=== PATIENT | female | born 1980 | race Caucasian/White ===

== ENCOUNTER 2018-03-19 17:44 | Inpatient (IN) | payer MEDICAID ==
[~2018-03-19] VITALS: Ht 160 cm; Wt 100.0 kg
[2018-03-19] MEDS ORDERED: LACTATED RINGER'S 1000 ML INJ 1,000 ML IV PRN (18:20)
--- NOTE | 2018-03-19 18:20 | HHI.HP ---
HPI Chief Complaint Water broke 4 PM Date Seen: March 19, 2018 Time Seen: 18:16 Travel History International Travel<30 Days: No Contact w/Intl Traveler<30Days: No Known Affected Area: No History of Present Illness HPI Patient is 37-year-old white female at [address] Werner for care and presents with spontaneous rupture membranes at term her amnisure is positive, lot rate tracing is reactive she is having occasional contraction Weeks Gestation: 38 Para: 0 : 1 History Social History Alcohol Use: No Tobacco Use: No Substance Abuse: No Allergies-Medications (Allergen,Severity, Reaction): Coded Allergies: No Known Drug Allergies (Verified Allergy, Unknown, 09/09/17) Home Meds No Active Prescriptions or Reported Meds Review of Systems General / Constitutional: No: Fever, Weight Gain, Chills, Other Eyes: No: Diploplia, Blurred Vision, Visual changes, Pain, Photophobia HENT: No: Headaches, Vertigo, Lightheadedness Cardiovascular: No: Irregular Rhythm, Chest Pain or Discomfort, Palpitations, Tachycardia, Syncope, Varicosities, Edema, Cyanosis Respiratory: No: Cough, Short of Breath, Other Gastrointestinal: No: Nausea, Vomiting, Diarrhea Genitourinary: No: Decreased Urinary Output, Oliguria Musculoskeletal: No: Limited ROM, Weakness, Cramping, Edema, Pain Skin: No Rash, No Itching, No Dryness, No Lumps, No Change in Pigmentation, No Change in Nails, No Alopecia, No Lesions Neurologic: No: Weakness, Dizziness, Syncope, Focal Abnormalities, Coordination Problem, Headache, Slurred Speech, Seizures Psychiatric: No: Depression, Suicidal Ideations, Homicidal Ideation Endocrine: No: Heat Intolerance, Cold Intolerance, Polydipsia, Polyuria, Other Physical Exam Narrative GENERAL: Well-nourished, well-developed patient. SKIN: Warm and dry. HEAD: Normocephalic and atraumatic. EYES: No scleral icterus. No injection or drainage. ENT: No nasal drainage noted. Mucous membranes pink. Airway patent. NECK: Supple, trachea midline. No JVD. CARDIOVASCULAR: Regular rate and rhythm without murmurs, gallops, or rubs. RESPIRATORY: Breath sounds equal bilaterally. No accessory muscle use. BREASTS: Bilateral exam showed no masses , no retractions, no nipple discharge. ABDOMEN/GI: Abdomen soft, non-tender, bowel sounds present, no rebound, no guarding Gravid to [-38] weeks size Fundal Height: [38-] GENITOURINARY: External Genitalia: intact and normal in appearance BUS glands: [-] Cervix: [post-] Dilatation: [2-] Effacement: [70-] Station: [-2] Presentation: [vtx-] Membranes: ruptured] Uterine Contractions: [-irreg] FHT's: Category: [1-] Baseline: [133-] Reactive: [-R] Variability: [mod-] Decels: [-0] EXTREMITIES: No cyanosis or edema. BACK: Nontender without obvious deformity. No CVA tenderness. NEUROLOGICAL: Awake and alert. Motor and sensory grossly within normal limits. Five out of 5 muscle strength in all muscle groups. Normal speech. Caprini VTE Risk Assessment Caprini VTE Risk Assessment: No/Low Risk (score <= 1) Caprini Risk Assessment Model Point Value = 1 Point Value = 2 Point Value = 3 Point Value = 5 Age 41-60 Minor surgery BMI > 25 kg/m2 Swollen legs Varicose veins or History of unexplained or recurrent spontaneous Oral contraceptives or hormone replacement Sepsis (< 1 month) Serious lung disease, including pneumonia (< 1 month) Abnormal pulmonary function Acute myocardial infarction Congestive heart failure (< 1 month) History of inflammatory bowel disease Medical patient at bed rest Age 61-74 Arthroscopic surgery Major open surgery (> 45 min) Laparoscopic surgery (> 45 min) Malignancy Confined to bed (> 72 hours) Immobilizing plaster cast Central venous access Age >= 75 History of VTE Family history of VTE Factor V Leiden Prothrombin [id number] Lupus anticoagulant Anticardiolipin antibodies Elevated serum homocysteine Heparin-induced thrombocytopenia Other congenital or acquired thrombophilia Stroke (< 1 month) Elective arthroplasty Hip, pelvis, or leg fracture Acute spinal cord injury (< 1 month) Prophylaxis Regimen Total Risk Factor Score Risk Level Prophylaxis Regimen 0-1 Low Early ambulation 2 Moderate Order ONE of the following: *Sequential Compression Device (SCD) *Heparin 5000 units SQ BID 3-4 Higher Order ONE of the following medications: *Heparin 5000 units SQ TID *Enoxaparin/Lovenox 40 mg SQ daily (WT < 150 kg, CrCl > 30 mL/min) *Enoxaparin/Lovenox 30 mg SQ daily (WT < 150 kg, CrCl > 10-29 mL/min) *Enoxaparin/Lovenox 30 mg SQ BID (WT < 150 kg, CrCl > 30 mL/min) AND/OR *Sequential Compression Device (SCD) 5 or more Highest Order ONE of the following medications: *Heparin 5000 units SQ TID (Preferred with Epidurals) *Enoxaparin/Lovenox 40 mg SQ daily (WT < 150 kg, CrCl > 30 mL/min) *Enoxaparin/Lovenox 30 mg SQ daily (WT < 150 kg, CrCl > 10-29 mL/min) *Enoxaparin/Lovenox 30 mg SQ BID (WT < 150 kg, CrCl > 30 mL/min) AND *Sequential Compression Device (SCD) Data Data Group B Strep: Positive Assessment/Plan Assessment and Plan [id number] at 38 weeks with spontaneous rupture membranes and not in active labor yet, is GBS positive will begin penicillin, discuss case with Dr. Werner Plan-admit to labor and delivery, augment managed labor appropriately, IV antibiotics for GBS status, anticipate vaginal delivery Anegl Dorsey II, MD March 19, 2018 18:20
[2018-03-19] MEDS ORDERED: LIDOCAINE HCL 1% 50 ML VIAL I-DERMAL PRN (18:30)
[2018-03-19] MEDS ORDERED: OXYTOCIN 30 UNITS-500ML PREMIX 500 ML IV ONE (18:30)
[2018-03-19] MEDS ORDERED: CITRIC ACID-SODIUM CITRATE LIQ 30 ML UDC PO SCH (18:30)
[2018-03-19] MEDS ORDERED: MINERAL OIL 10 ML VIAL TOPICAL PRN (18:30)
[2018-03-19] MEDS ORDERED: LIDOCAINE HCL 1% 50 ML VIAL INFIL PRN (18:30)
[2018-03-19] MEDS ORDERED: SODIUM CHLORID 0.9% 500 ML INJ 500 ML IV PRN (18:30)
[2018-03-19] MEDS ORDERED: PENICILLIN G POTASSIUM INJ 5,000,000 UNITS in SODIUM CHLORIDE 0.9% INJ 100 ML IV ONE (18:30)
[2018-03-19] MEDS ORDERED: SODIUM CHLOR 0.9% 1000 ML INJ 1,000 ML IV PRN (18:40)
[2018-03-19] MEDS ORDERED: LACTCAP8 PO (18:43)
[2018-03-19] MEDS ORDERED: PREN29TA PO (18:43)
[2018-03-19] MEDS ORDERED: OXYTOCIN 30 UNITS-500ML PREMIX 500 ML IV PRN (19:00)
[2018-03-19] MEDS: LACTATED RINGER'S 1000 ML INJ 1,000 ML IV SCH (19:57)
[2018-03-19 20:04] LABS: AUTOMATED NEUTROPHIL # 10.6 TH/MM3 (1.8-7.7); BASOPHIL % 0.3 % (0.0-2.0); EOSINOPHIL # 0.1 TH/MM3 (0-0.4); EOSINOPHIL % 0.6 % (0.0-4.0); HEMOGLOBIN 12.5 GM/DL (11.6-15.3); LYMPH % 25.2 % (9.0-44.0); LYMPHOCYTE # 3.8 TH/MM3 (1.0-4.8); MEAN CELL VOLUME 87.8 FL (80.0-100.0); MEAN PLATELET VOLUME 7.9 FL (7.0-11.0); MONO % 4.4 % (0.0-8.0); MONOCYTE # 0.7 TH/MM3 (0-0.9); NEUT % 69.5 % (16.0-70.0); PLATELET COUNT 340 TH/MM3 (150-450); RED BLOOD COUNT 4.33 MIL/MM3 (4.00-5.30); RED CELL DISTRIBUTION WIDTH 14.2 % (11.6-17.2); WHITE BLOOD COUNT 15.2 TH/MM3 (4.0-11.0)
[2018-03-19 20:07] LABS: BACTERIA, URINE RARE /hpf; BILIRUBIN, URINE NEG (NEG); BLOOD, URINE NEG (NEG); GLUCOSE,URINE NEG (NEG); KETONE, URINE 10 mg/dL (NEG); MUCUS URINE FEW /lpf (OCC); NITRITE,URINE NEG (NEG); PH, URINE 5.5 (5.0-8.5); SQUAMOUS EPITHELIAL CELL URINE 10 /hpf (0-5); URINE COLOR LIGHT-YELLOW (YELLW/STRAW); URINE LEUKOCYTE ESTERASE MOD (NEG)
--- NOTE | 2018-03-19 21:23 | PD.LABORPN ---
Subjective Subjective doing well no significant pain Objective Objective Pelvic Exam: Cervix: [-] Dilatation: 3 Effacement: 90 Station: [-] Presentation: vtx Membranes SROM Uterine Contractions: Q2 FHT's: Category: 1 Baseline: [-] Reactive: [-] Variability: [-] Decels: [-] Weeks Gestation: 38 Gest Age Assessed Date: March 19, 2018 Gest Age Assessed Time: 21:20 Active labor start date: March 19, 2018 Active labor start time: 16:00 Medical induction of labor?: No Artificial rupture of membrane: No Assessment/Plan Problem List: (1) AMA (advanced maternal age) multigravida 35+ ICD Codes: O09.529 - Supervision of elderly multigravida, unspecified trimester (2) 38 weeks gestation of ICD Codes: Z3A.38 - 38 weeks gestation of Cali Whitehead MD March 19, 2018 21:23
[2018-03-19] MEDS: PENICILLIN G POTASSIUM INJ 2,500,000 UNITS in SODIUM CHLORIDE 0.9% INJ 100 ML IV SCH (22:30)
[2018-03-19] MEDS ORDERED: fentaNYL 2MCG-BUPIV 0.125% INJ 150 ML EPIDURAL ONE (23:46)
[2018-03-20] MEDS ORDERED: LIDOCAINE 1.5%/EPINEPHrine 1:200,000 PF 5 ML AMP ONE (00:06)
[2018-03-20] MEDS ORDERED: DO NOT ADMINISTER ANTICOAGULANTS PRN (00:10)
[2018-03-20] MEDS ORDERED: NO SYSTEM NARCOTICS PRN (00:10)
[2018-03-20] MEDS ORDERED: fentaNYL 2MCG-BUPIV 0.125% 100 ML EPIDURAL PRN (00:10)
[2018-03-20] MEDS ORDERED: ePHEDrine/NS 25 MG/5 ML SYRINGE ONE (00:32)
[2018-03-20] MEDS ORDERED: ePHEDrine/NS 25 MG/5 ML SYRINGE IV PUSH PRN (00:45)
[2018-03-20] MEDS: LACTATED RINGER'S 1000 ML INJ 1,000 ML IV SCH (01:08)
[2018-03-20] MEDS: PENICILLIN G POTASSIUM INJ 2,500,000 UNITS in SODIUM CHLORIDE 0.9% INJ 100 ML IV SCH ×2 (02:30→09:09)
[2018-03-20] MEDS ORDERED: ONDANSETRON ODT 4 MG TAB SL PRN (05:00)
--- NOTE | 2018-03-20 08:00 | PD.LABORPN ---
Subjective Subjective doing well, comfortable with epidural and IUPC in place and pitocin at 20 mu/min Objective Objective Pelvic Exam: Cervix: [-] Dilatation:9 Effacement: 100 Station: -1 Presentation: vtx Membranes: Srom 4 pm Uterine Contractions: 2-3 FHT's: Category: 1 Baseline: [-] Reactive: [-] Variability: [-] Decels: [-] Weeks Gestation: 38 Gest Age Assessed Date: March 19, 2018 Gest Age Assessed Time: 21:20 Active labor start date: March 19, 2018 Active labor start time: 16:00 Medical induction of labor?: No Artificial rupture of membrane: No Assessment/Plan Problem List: (1) AMA (advanced maternal age) multigravida 35+ ICD Codes: O09.529 - Supervision of elderly multigravida, unspecified trimester (2) 38 weeks gestation of ICD Codes: Z3A.38 - 38 weeks gestation of Assessment and Plan continue to change position and monitor Cali Whitehead MD March 20, 2018 08:00
[2018-03-20] MEDS ORDERED: fentaNYL 2MCG-BUPIV 0.125% INJ 150 ML EPIDURAL ONE (09:03)
[2018-03-20] MEDS ORDERED: LIDOCAINE HCL 1% PF 30 ML VIAL ONE (11:50)
--- NOTE | 2018-03-20 12:12 | PD.OB.DELI ---
Weeks gestation: 38 Gest age assessed date: March 19, 2018 Gest age assessed time: 21:20 Active labor start date: March 19, 2018 Active labor start time: 16:00 Medical induction of labor?: No Artificial rupture of membrane: No Anesthesia: Epidural Episiotomy: None Vaginal Delivery: Normal Presentation: Occiput anterior Nuchal Cord: None Delayed cord clamping (45 sec): Yes : Female Delivery date: March 20, 2018 Delivery time: 11:53 One Minute : 9 Five Minute : 9 Placenta: Spontaneous delivery, Intact, 3 vessel cord Laceration: Vaginal laceration, 1 deg Repair: Chromic interrupted Cali Whitehead MD March 20, 2018 12:12
[2018-03-20] MEDS ORDERED: ACETAMINOPHEN 325 MG TAB PO PRN (12:15)
[2018-03-20] MEDS ORDERED: ONDANSETRON ODT 4 MG TAB PO PRN (12:15)
[2018-03-20] MEDS ORDERED: SODIUM CHLORIDE 0.9% FLUSH 10 ML FLUSH IV FLUSH PRN (12:15)
[2018-03-20] MEDS ORDERED: ZOLPIDEM TARTRATE 5 MG TAB PO PRN (12:15)
[2018-03-20] MEDS ORDERED: BENZOCAINE 20% TOPICAL SPRAY 60 ML CAN TOPICAL PRN (12:15)
[2018-03-20] MEDS ORDERED: WITCH HAZEL 50%/GLYCERIN 12.5% 40 PAD JAR TOPICAL PRN (12:15)
[2018-03-20] MEDS ORDERED: ALUMINUM/MAGNESIUM/SIMETH 30 ML CUP PO PRN (12:15)
[2018-03-20] MEDS ORDERED: OXYTOCIN 30 UNITS-500ML PREMIX 500 ML IV SCH (12:15)
[2018-03-20] MEDS ORDERED: DIPHTH/TETANUS/ACEL PERTUSSIS (BOOSTER) 0.5 ML VIAL/PFS IM ONE (16:00)
[2018-03-20] MEDS ORDERED: MEASLES, MUMPS, RUBELLA VACCINE 0.5 ML VIAL SQ ONE (16:00)
[2018-03-20 20:32] VITALS: BP 133/72; PULSE 101; RESP 18; TEMP 97.6
[2018-03-21] MEDS: DOCUSATE SODIUM 50 MG/SENNA 8.6 MG TAB PO PRN ×2 (02:07→14:58)
[2018-03-21] MEDS: IBUPROFEN 800 MG TAB PO PRN ×2 (02:07→14:59)
--- NOTE | 2018-03-21 07:22 | HHI.OB ---
Subjective Post Day: 1 Remarks doing well GBS positive pt aware of 48 hr stay Objective Vitals/I&O Vital Signs Date Time Temp Pulse Resp B/P (MAP) Pulse Ox O2 Delivery O2 Flow Rate FiO2 03/20/18 20:32 97.6 101 18 133/72 (92) Objective Remarks GENERAL: Well-nourished, well-developed patient. ABDOMEN/GI: Abdomen soft, non-tender. Fundus: Firm, non-tender at umbilicus. GENITOURINARY: Light to moderate bleeding. EXTREMITIES: No cyanosis or edema, non-tender, without signs of DVT. Medications and IVs Current Medications Medications (Trade) Dose Ordered Sig/Erica Route Start Time Stop Time Status Last Admin (NS Flush) 2 ml BID IV FLUSH 03/20/18 21:00 (NS Flush) 2 ml UNSCH PRN IV FLUSH 03/20/18 12:15 (Tylenol) 650 mg Q4H PRN PO 03/20/18 12:15 (Motrin) 800 mg Q8H PRN PO 03/20/18 12:15 03/21/18 02:07 (Americaine 20% Top Spr) 1 spray Q4H PRN TOPICAL 03/20/18 12:15 (Tucks Pads) 1 applic QID PRN TOPICAL 03/20/18 12:15 (Mery-Colace) 2 tab Q12H PRN PO 03/20/18 12:15 03/21/18 02:07 (Ambien) 5 mg HS PRN PO 03/20/18 12:15 (Mag-Al Plus Susp Liq) 15 ml Q8H PRN PO 03/20/18 12:15 (Zofran Odt) 4 mg Q6H PRN PO 03/20/18 12:15 Assessment/Plan Problem List: (1) AMA (advanced maternal age) multigravida 35+ ICD Codes: O09.529 - Supervision of elderly multigravida, unspecified trimester (2) 38 weeks gestation of ICD Codes: Z3A.38 - 38 weeks gestation of Assessment and Plan on 03/20 Cali Whitehead MD March 21, 2018 07:22
--- NOTE | 2018-03-21 07:23 | HHI.DCPOC ---
Discharge Care Plan Diagnosis: (1) Spontaneous vaginal delivery Report Symptoms to Your Doctor -Temperature above 100.5 degrees -Redness, of incision or excessive or foul smelling drainage -Unusual pain or calf pain -Increased vaginal bleeding -Painful or difficulty urinating -Feelings of extreme sadness or anxiety after 2 weeks Goals to Promote Your Health * To prevent worsening of your condition and complications * To maintain your health at the optimal level Directions to Meet Your Goals Take your medications as prescribed Follow your dietary instruction Follow activity as directed Ensure plenty of rest for recovery Drink fluids for hydration Keep your appointments as scheduled Take your immunizations and boosters as scheduled If your symptoms worsen call your PCP, if no PCP go to Urgent Care Center or Emergency Room Smoking is Dangerous to Your Health. Avoid second hand smoke Call the 24-hour crisis hotline for domestic abuse at Cali Whitehead MD March 21, 2018 07:23
[2018-03-21] MEDS: SODIUM CHLORIDE 0.9% FLUSH 10 ML FLUSH IV FLUSH SCH (09:00)
[2018-03-22] MEDS: IBUPROFEN 800 MG TAB PO PRN (06:39)
[2018-03-22] MEDS: DOCUSATE SODIUM 50 MG/SENNA 8.6 MG TAB PO PRN (06:39)
--- NOTE | 2018-03-22 06:48 | HHI.OB ---
Subjective Post Day: 2 Remarks doing well Objective Objective Remarks GENERAL: Well-nourished, well-developed patient. ABDOMEN/GI: Abdomen soft, non-tender. Fundus: Firm, non-tender at umbilicus. GENITOURINARY: Light to moderate bleeding. EXTREMITIES: No cyanosis or edema, non-tender, without signs of DVT. Medications and IVs Current Medications Medications (Trade) Dose Ordered Sig/Erica Route Start Time Stop Time Status Last Admin (NS Flush) 2 ml BID IV FLUSH 03/20/18 21:00 (NS Flush) 2 ml UNSCH PRN IV FLUSH 03/20/18 12:15 (Tylenol) 650 mg Q4H PRN PO 03/20/18 12:15 (Motrin) 800 mg Q8H PRN PO 03/20/18 12:15 03/22/18 06:39 (Americaine 20% Top Spr) 1 spray Q4H PRN TOPICAL 03/20/18 12:15 (Tucks Pads) 1 applic QID PRN TOPICAL 03/20/18 12:15 (Mery-Colace) 2 tab Q12H PRN PO 03/20/18 12:15 03/22/18 06:39 (Ambien) 5 mg HS PRN PO 03/20/18 12:15 (Mag-Al Plus Susp Liq) 15 ml Q8H PRN PO 03/20/18 12:15 (Zofran Odt) 4 mg Q6H PRN PO 03/20/18 12:15 Assessment/Plan Problem List: (1) AMA (advanced maternal age) multigravida 35+ ICD Codes: O09.529 - Supervision of elderly multigravida, unspecified trimester (2) 38 weeks gestation of ICD Codes: Z3A.38 - 38 weeks gestation of Assessment and Plan on 03/20 [place] home 03/22/2018 Cali Whitehead MD March 22, 2018 06:48
--- NOTE | 2018-03-22 06:50 | HHI.DS ---
Admission Date March 19, 2018 at 18:19 Discharge Date: March 22, 2018 Admitting Diagnosis Diagnosis: (1) Spontaneous vaginal delivery ICD Codes: O80 - Encounter for full-term uncomplicated delivery Delivery Date: March 20, 2018 Vaginal Delivery: Normal, Spontaneous : Female Brief History Patient is 37-year-old white female at [address] Werner for care and presents with spontaneous rupture membranes at term her amnisure is positive, lot rate tracing is reactive she is having occasional contraction Hospital Course on 03/20 ok for DC home Pt Condition on Discharge: Good Discharge Disposition: Discharge Home Discharge Instructions Diet Instructions: As Tolerated, No Restrictions Activities You Can Perform: Pelvic Rest Activities to Avoid: Driving for 24 hrs Follow up Referrals: [facility] - 2 Weeks @ [facility] with Cali Whitehead MD Discontinued Medications: Lactobacillus Acidophilus (Probiotic) 10 Billion Cell Cap 1 CAP PO TIDAC for Nutritional Supplement, #90 CAP 0 Refills Vit-Iron Carbonyl ( Plus Iron 29-1 mg) 29 Mg Iron-1 Mg Tab 1 TAB PO DAILY for Nutritional Supplement, #30 TAB 0 Refills Cali Whitehead MD March 22, 2018 06:50
[2018-03-22] MEDS: SODIUM CHLORIDE 0.9% FLUSH 10 ML FLUSH IV FLUSH SCH (10:00)
[2018-03-22] MEDS ORDERED: DIPHTH/TETANUS/ACEL PERTUSSIS (BOOSTER) 0.5 ML VIAL/PFS IM ONE (10:15)
== END 2018-03-22 15:44 | disposition home or self-care (01) | DRG 775 ==
LOC: HOBED 17:44 → H2EB 18:19 → H1EA 03-20 14:27
PROVIDERS: ADMIT Obstetrics & Gynecology; ATTEND Obstetrics & Gynecology
PROC: 10E0XZZ Delivery of Products of Conception, External Approach (ICD-10-PCS; principal; 2018-03-20)
PROC: 10H07YZ Insertion of Other Device into Products of Conception, Via Natural or Artificial Opening (ICD-10-PCS; 2018-03-20)
PROC: 0HQ9XZZ Repair Perineum Skin, External Approach (ICD-10-PCS; 2018-03-20)
PROC: 00HU33Z Insertion of Infusion Device into Spinal Canal, Percutaneous Approach (ICD-10-PCS; 2018-03-20)
PROC: 3E0R3BZ Introduction of Anesthetic Agent into Spinal Canal, Percutaneous Approach (ICD-10-PCS; 2018-03-20)
DX: O99.824 Streptococcus B carrier state complicating childbirth (principal); Z37.0 Single live birth; O70.0 First degree perineal laceration during delivery; Z3A.38 38 weeks gestation of pregnancy
CPT/HCPCS: 59025; 80307; 81001; 84112; 85025; 86850; 86900; 86901; 87086; 90715; J2540; J2590; J7120